=== PATIENT | female | born 1990 | race Caucasian/White ===

== ENCOUNTER → 2017-12-18 12:56 | Outpatient (CLI) | payer OTHER, SELFPAY | DX: K12.0 Recurrent oral aphthae (principal) | CPT/HCPCS: 87070 ==

== ENCOUNTER → 2018-03-30 09:57 | Outpatient (CLI) | payer OTHER, SELFPAY ==
[2018-03-30 11:17] LABS: Appearance Urine UA SL CLOUDY; Bilirubin Urine UA NEGATIVE (NEGATIVE); Color Urine UA YELLOW; Glucose Urine UA NEGATIVE (Normal); Ketones Urine UA NEGATIVE (NEGATIVE); Leukocyte Esterase Urine UA 3+ (NEGATIVE); Nitrite Urine UA Negative (Negative); Occult Blood Urine UA TRACE-LYSED (Negative); Protein Urine UA NEGATIVE (Negative); Specific Gravity Urine UA 1.015 (1.000-1.035); Urobilinogen Urine UA 0.2 E.U./dL (0.2); pH Urine UA 6.5 (4.5-8.0)
[2018-03-30 11:24] LABS: RBC Urine 0-1/HPF (0-5/HPF)
[2018-03-30 11:25] LABS: Bacteria Urine Many (>30); Culture Indicated Urine Cult Not Indicated; Squamous Epithelial Cell Urine 10-30 /HPF; WBC Urine 1-5/HPF (0-5/HPF)
== END ==
PROVIDERS: PCP Internal Medicine; Visit Provider Internal Medicine
DX: M54.5 Low back pain (principal); R82.71 Bacteriuria
CPT/HCPCS: 81001; 87086

== ENCOUNTER 2018-06-05 10:30 | Outpatient (RCR) | payer OTHER, SELFPAY ==
--- NOTE | 2018-05-18 16:04 | PT.OIE ---
Current Diagnoses Dorsalgia, unspecified (05/18/18) Past Medical History (Last Updated 03/04/18 @ 08:10 by Rosenda Cheatham) Ankle pain (Chronic ~2017) Scoliosis (Chronic ~2003) Chicken pox (Resolved ~1995) Past Surgical History (Last Updated 03/04/18 @ 08:10 by Rosenda Cheatham) Anesthesia (Resolved) History of rhinoplasty (Resolved ~2013) History of spinal fusion (Resolved ~2004) History of tonsillectomy and adenoidectomy (Resolved) Provider Visit Care Team Role Provider Type COLE Oscar Attending Provider Advanced Poultry And Fish Butcher Primary Care Provider Specialty: [facility] Practice Address: [address] [place] [address], [facility] Email: [email or web address] Physical Therapy Initial Evaluation PT-OP-A Visit Information Start: 05/18/18 08:27 Freq: Status: Active Protocol: Document 05/18/18 09:01 LRN (Rec: 05/18/18 09:47 LRN [id number]) Out-Patient Physical Therapy Visit Information Visit Information Visit Type Initial Evaluation Visit Note 24 visits Visit Start Time 09:01 Visit Stop Time 09:46 Total Visit Minutes 45 Visit Number 1 Number of SOFT METALS HAND ENGRAVER Visits 0 Evaluation Information Evaluation Date 05/18/18 PT-OP-B Current Condition Start: 05/18/18 08:27 Freq: Status: Active Protocol: Document 05/18/18 09:01 LRN (Rec: 05/18/18 09:47 LRN [id number]) Current Condition History of Current Condition Onset Date End february Current Complaints Pain is in the low back ( middle to R side)that wraps around the right hip. History of Current Condition Pt reports sudden onset of back pain. Woke with pain. Thinks sitting X-legged may have started the problem. thinks its from sitting wrong . She started sitting properly and her back pain improved, but did not go away. No radiating pain into the R leg. 80% of the LBP is on the R side. Pain is intermittent . Typically is very active, so now she is sore after exercise and after sitting ( used to be sharp). Her pain now hasn't prevented her from activities. The pt is R Handed. Prior Treatments and Tests Spinal fusion at age 14 for scoliosis. Developmental History Developmental History Pt exercises 3-4 times per week. Goes on walks, runs on TM 2x/week for 30' and does light weight gym exercises. Treatment Goals Patient/Caregiver Goals Pt's goal is to not have any pain in the low back. Prior Functional Status Baseline Function- ADL's Independent Baseline Function- Mobility Independent Baseline Function- Other Nothing restricted. Sore in back once in awhile, doesn't restrict activities. Current Functional Impairments (Reported) Functional Limitations- ADL's Independent Functional Limitations- Mobility/Gait Independent Functional Limitations- Recreation/ Limited slightly due to Hobbies soreness post exercise. 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 Lives in [place]. , no children. PT-OP-C Subjective Start: 05/18/18 08:27 Freq: Status: Active Protocol: Document 05/18/18 09:01 LRN (Rec: 05/18/18 09:47 LRN [id number]) OP-PT Subjective Patient Comments Patient Comments Has plateaued in improvement, therefore trying physical therapy for resolution of pain . Patient Questionnaires Foot & Ankle Ability Measure- ADL and Sports FAAM-ADL Impairment 100% Impaired (Score 0) Oswestry Low Back Index Oswestry Score 6 Oswestry Impairment 1 to 19% Impaired (Score 1-19) OP-PT Pain Assessment Pain Assessment Grid Paper Pain Assessment Grid Completed Yes Location Low back Pain Location Details At level of lower lumbar and upper gluteals Scale Used Numeric (1 - 10) Description Aching Description- Other Pain generally 1-2/10, at worst is 4/10 on the right. 1 -2/10 on the left. Frequency Intermittent Radiating Location None Pain Aggravating Factors Exercise Sitting Patient Stated Pain Goal Painfree. PT-OP-F Manual Assessment Start: 05/18/18 08:27 Freq: Status: Active Protocol: Document 05/18/18 09:01 LRN (Rec: 05/18/18 11:17 LRN [id number]) Manual Assessments Soft Tissue Assessment Soft Tissue Mobility Assessment Increased tone in R lumbar paraspinals and posterior hip muscles. Joint Mobility Assessment Joint Mobility Assessment L5 & Sacrum in R rotation. Sacrum in extension with spinal rods present. Spinal rods for scoliosis correction in place. PT-OP-J Posture/Palpation/Skin Start: 05/18/18 08:27 Freq: Status: Active Protocol: Document 05/18/18 09:01 LRN (Rec: 05/18/18 11:17 LRN [id number]) Posture Evaluation Position Standing Evaluation View All positions Head/C-Spine Posture Forward Head T-Spine Posture Flattened Pelvis Posture (R) Rotated Anterior (R) Iliac Crest Superior Weight Distribution Balanced Foot Arch (L) Medium Arch (R) Medium Arch Palpation Assessment Location Lumbar spine Palpation Location ~L5 spinous process and Transverse process with PA pressure Palpation Findings Tenderness PT-OP-K Range of Motion Start: 05/18/18 08:27 Freq: Status: Active Protocol: Document 05/18/18 09:01 LRN (Rec: 05/18/18 11:17 LRN [id number]) Hip Goniometric Range of Motion Hip Measured in Degrees Right Passive Testing Position Supine Straight Leg Raise 68 Internal Rotation 50 External Rotation 75 Left Passive Testing Position Supine Straight Leg Raise 60 Internal Rotation 45 External Rotation 70 Hip ROM Limitations Comments Hip AD: 25 deg's left, 25 deg' s right. PT-OP-L Special Tests Start: 05/18/18 08:27 Freq: Status: Active Protocol: Document 05/18/18 09:01 LRN (Rec: 05/18/18 15:28 LRN [id number]) Special Tests Lumbar Spine Special Tests Straight Leg Raise Test Results 68 deg's right, 60 deg's left. Hip Special Tests Lateral Compression Test Test Results Negative Comments Right side testing for SIJ involvement Distraction Test Test Results Negative Comments Right side testing for SIJ involvement DAIANA Test Results Negative Comments Right side testing for SIJ involvement PT-OP-M Strength Start: 05/18/18 08:27 Freq: Status: Active Protocol: Document 05/18/18 09:01 LRN (Rec: 05/18/18 15:28 LRN [id number]) Hip Strength Hip Manual Muscle Testing Right Reason Not Measured WFL Comments Bilaterally: WNL Knee Strength Knee Manual Muscle Testing Right Reason Not Measured WFL Comments Bilaterally: WNL PT-OP-Q Treatments Start: 05/18/18 08:27 Freq: Status: Active Protocol: Document 05/18/18 09:01 LRN (Rec: 05/18/18 15:23 LRN [id number]) Therapeutic Exercises Prone Exercises Lumbar ext Prone Exercise Name RONNI Side bilateral Reps/Minutes 10x Manual Therapy Treatment Joint Mobilizations Lumbar Joint L5 Direction PA Grade II Body Position Prone Reps/Duration 2' Manual Techniques Sacrum Type MET to correct R rotated and extended Sacrum Body Position Prone Reps/Duration 4' Lumbar Type MET to correct a R rotated L5 Body Position Prone Reps/Duration 2' Self-Care/Home Management Treatment Education Patient Education Body Mechanics Home Exercise Program Pain Management Other Education I/S pt in RONNI ex for HEP and use of ice for pain management . Briefly discussed posturing while at her workplace. PT-OP-T Assessment and Plan Start: 05/18/18 08:27 Freq: Status: Active Protocol: Document 05/18/18 09:01 LRN (Rec: 05/18/18 09:47 LRN [id number]) Physical Therapy Assessment Rehab Potential Rehabilitation Potential Excellent Evaluation Complexity Number of Personal Factors/Comorbidities 1-2 Number of Body Systems Impaired 3 Clinical Presentation at Evaluation Stable Impairments Impairments Activity Tolerance Pain ROM Soft Tissue Mobility Other Concerns Age Related Concerns Effect on work and family Barriers to Rehabilitation Spinal fusion with spinal rods to treat scoliosis. Goals Two Impairment Low back pain Document Specialist Goal (LTG) Decrease pain to 0/10 at rest and no greater than 1/10 after exercise. LTG Duration 07/06/18 One Impairment Lacks self care and HEP. Skilled Nursing Goal (LTG) Pt will be independent with a self care/HEP to manage her pain. LTG Duration 07/06/18 Assessment Summary Assessment Pt presents with probable lumbar pain associated to prolonged cross legged positioning, resulting in lower lumbar spine and sacrum in R rotation. She demonstrates 60 deg's SLR and hip tightness on the left vs right. I will monitor the pt for possible disc symptoms. She was negative in 3 of 5 tests for SIJ involvement; therefore her low back pain is most likely from poor posturing and lumbar strain. The pt's pain has been resolving and she is expected to progress well with therapy but will plan on average of 6 weeks of rehabilitation. The pt will benefit from skilled physical therapy for education on self care, progression of a HEP and treatment for low back pain. Physical Therapy Plan Frequency and Duration Frequency of Treatment 2x/Week Plan of Care Start Date 05/18/18 Plan of Care End Date 07/03/18 Therapeutic Interventions Therapeutic Interventions Home Exercise Program Manual Therapy Neuromuscular Re-education Patient/Caregiver Education Self-Care/Home Management Soft Tissue Mobilization Taping Therapeutic Activities Therapeutic Exercises Modalities Cold Pack/Ice Massage Next Visit Focus/Plan Next Visit Plan Ex bike for warm up, MET for correction of low back/sacral rotation if needed, K-tape lower L/S for muscle relaxation/inflammation. Start STM low back & hips, HEP of hip stretches (Hamstring/ neural, IR left, AD right). Check Thigh Thrust test. End ice.
--- NOTE | 2018-05-18 16:05 | PT.OPPOC ---
Current Diagnoses Dorsalgia, unspecified (05/18/18) Provider Visit Care Team Role Provider Type COLE Oscar Attending Provider Advanced Ribbon Lapper Tender Primary Care Provider Specialty: Family Practice Address: [address] [place] [address], [id number] Email: [email or web address] Plan Of Care PT-OP-T Assessment and Plan Start: 05/18/18 08:27 Freq: Status: Active Protocol: Document 05/18/18 09:01 LRN (Rec: 05/18/18 09:47 LRN [id number]) Physical Therapy Assessment Rehab Potential Rehabilitation Potential Excellent Evaluation Complexity Number of Personal Factors/Comorbidities 1-2 Number of Body Systems Impaired 3 Clinical Presentation at Evaluation Stable Impairments Impairments Activity Tolerance Pain ROM Soft Tissue Mobility Other Concerns Age Related Concerns Effect on work and family Barriers to Rehabilitation Spinal fusion with spinal rods to treat scoliosis. Goals Two Impairment Low back pain Care Home Goal (LTG) Decrease pain to 0/10 at rest and no greater than 1/10 after exercise. LTG Duration 07/06/18 One Impairment Lacks self care and HEP. Care Home Goal (LTG) Pt will be independent with a self care/HEP to manage her pain. LTG Duration 07/06/18 Assessment Summary Assessment Pt presents with probable lumbar pain associated to prolonged cross legged positioning, resulting in lower lumbar spine and sacrum in R rotation. She demonstrates 60 deg's SLR and hip tightness on the left vs right. I will monitor the pt for possible disc symptoms. She was negative in 3 of 5 tests for SIJ involvement; therefore her low back pain is most likely from poor posturing and lumbar strain. The pt's pain has been resolving and she is expected to progress well with therapy but will plan on average of 6 weeks of rehabilitation. The pt will benefit from skilled physical therapy for education on self care, progression of a HEP and treatment for low back pain. Physical Therapy Plan Frequency and Duration Frequency of Treatment 2x/Week Plan of Care Start Date 05/18/18 Plan of Care End Date 07/03/18 Therapeutic Interventions Therapeutic Interventions Home Exercise Program Manual Therapy Neuromuscular Re-education Patient/Caregiver Education Self-Care/Home Management Soft Tissue Mobilization Taping Therapeutic Activities Therapeutic Exercises Modalities Cold Pack/Ice Massage Next Visit Focus/Plan Next Visit Plan Ex bike for warm up, MET for correction of low back/sacral rotation if needed, K-tape lower L/S for muscle relaxation/inflammation. Start STM low back & hips, HEP of hip stretches (Hamstring/ neural, IR left, AD right). Check Thigh Thrust test. End ice. Plan of Care Dates Plan of Care Start Date 05/18/18 Plan of Care End Date 07/03/18 Please Sign and Return: I have reviewed this Plan of Care and certify that the skilled therapy services above are required to meet the patient?s needs. Physician Signature Date Printed Name and Credentials Clinical Instructor Signature Printed Name and Credentials
--- NOTE | 2018-05-25 16:34 | PT.OTN ---
Current Diagnoses Dorsalgia, unspecified (05/25/18) Physical Therapy Treatment Note PT-OP-A Visit Information Start: 05/18/18 08:27 Freq: Status: Active Protocol: Document 05/25/18 15:19 SAK (Rec: 05/25/18 16:34 SAK [id number]) Out-Patient Physical Therapy Visit Information Visit Information Visit Type Initial Evaluation Visit Start Time 15:19 Visit Stop Time 16:07 Total Visit Minutes 48 Visit Number 09/27 Evaluation Information Evaluation Date 05/18/18 PT-OP-B Current Condition Start: 05/18/18 08:27 Freq: Status: Active Protocol: Document 05/18/18 09:01 LRN (Rec: 05/18/18 09:47 LRN [id number]) Current Condition History of Current Condition Onset Date End of February Current Complaints Pain is in the low back ( middle to R side)that wraps around the right hip. History of Current Condition Pt reports sudden onset of back pain. Woke with pain. Thinks sitting X-legged may have started the problem. thinks its from sitting wrong . She started sitting properly and her back pain improved, but did not go away. No radiating pain into the R leg. 80% of the LBP is on the R side. Pain is intermittent . Typically is very active, so now she is sore after exercise and after sitting ( used to be sharp). Her pain now hasn't prevented her from activities. The pt is R Handed. Prior Treatments and Tests Spinal fusion at age 14 for scoliosis. Developmental History Developmental History Pt exercises 3-4 times per week. Goes on walks, runs on TM 2x/week for 30' and does light weight gym exercises. Treatment Goals Patient/Caregiver Goals Pt's goal is to not have any pain in the low back. Prior Functional Status Baseline Function- ADL's Independent Baseline Function- Mobility Independent Baseline Function- Other Nothing restricted. Sore in back once in awhile, doesn't restrict activities. Current Functional Impairments (Reported) Functional Limitations- ADL's Independent Functional Limitations- Mobility/Gait Independent Functional Limitations- Recreation/ Limited slightly due to Hobbies soreness post exercise. 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 Lives in [place]. , no children. PT-OP-C Subjective Start: 05/18/18 08:27 Freq: Status: Active Protocol: Document 05/25/18 15:19 SAK (Rec: 05/25/18 16:32 SAK [id number]) OP-PT Subjective Patient Comments Patient Comments maybe a little better after first session. PT-OP-F Manual Assessment Start: 05/18/18 08:27 Freq: Status: Active Protocol: Document 05/18/18 09:01 LRN (Rec: 05/18/18 11:17 LRN [id number]) Manual Assessments Soft Tissue Assessment Soft Tissue Mobility Assessment Increased tone in R lumbar paraspinals and posterior hip muscles. Joint Mobility Assessment Joint Mobility Assessment L5 & Sacrum in R rotation. Sacrum in extension with spinal rods present. Spinal rods for scoliosis correction in place. PT-OP-J Posture/Palpation/Skin Start: 05/18/18 08:27 Freq: Status: Active Protocol: Document 05/18/18 09:01 LRN (Rec: 05/18/18 11:17 LRN [id number]) Posture Evaluation Position Standing Evaluation View All positions Head/C-Spine Posture Forward Head T-Spine Posture Flattened Pelvis Posture (R) Rotated Anterior (R) Iliac Crest Superior Weight Distribution Balanced Foot Arch (L) Medium Arch (R) Medium Arch Palpation Assessment Location Lumbar spine Palpation Location ~L5 spinous process and Transverse process with PA pressure Palpation Findings Tenderness PT-OP-K Range of Motion Start: 05/18/18 08:27 Freq: Status: Active Protocol: Document 05/18/18 09:01 LRN (Rec: 05/18/18 11:17 LRN [id number]) Hip Goniometric Range of Motion Hip Measured in Degrees Right Passive Testing Position Supine Straight Leg Raise 68 Internal Rotation 50 External Rotation 75 Left Passive Testing Position Supine Straight Leg Raise 60 Internal Rotation 45 External Rotation 70 Hip ROM Limitations Comments Hip AD: 25 deg's left, 25 deg' s right. PT-OP-L Special Tests Start: 05/18/18 08:27 Freq: Status: Active Protocol: Document 05/18/18 09:01 LRN (Rec: 05/18/18 15:28 LRN [id number]) Special Tests Lumbar Spine Special Tests Straight Leg Raise Test Results 68 deg's right, 60 deg's left. Hip Special Tests Lateral Compression Test Test Results Negative Comments Right side testing for SIJ involvement Distraction Test Test Results Negative Comments Right side testing for SIJ involvement DAIANA Test Results Negative Comments Right side testing for SIJ involvement PT-OP-M Strength Start: 05/18/18 08:27 Freq: Status: Active Protocol: Document 05/18/18 09:01 LRN (Rec: 05/18/18 15:28 LRN [id number]) Hip Strength Hip Manual Muscle Testing Right Reason Not Measured WFL Comments Bilaterally: WNL Knee Strength Knee Manual Muscle Testing Right Reason Not Measured WFL Comments Bilaterally: WNL PT-OP-Q Treatments Start: 05/18/18 08:27 Freq: Status: Active Protocol: Document 05/25/18 15:19 SAK (Rec: 05/25/18 16:32 SAK [id number]) Cardio Equipment Recumbent Stepper (Sci-Fit) Duration (Minutes) 5 Resistance 2.0 Other emphasis on core activation, neutral LE's Therapeutic Exercises Supine Exercises DKTC Reps/Minutes 2x bicycle Reps/Minutes 20x Comments head down, no twisting Prone Exercises plank Reps/Minutes 10 sec x 2 Sitting Exercises figure 4, piriformis Reps/Minutes 2x Standing Exercises hip flex stretch Reps/Minutes 2x HS stretch Reps/Minutes 2x Comments neutral and with IR HC stretch Equipment Used JENNIFER Reps/Minutes 2x Self-Care/Home Management Treatment Education Patient Education Body Mechanics Home Exercise Program Pain Management Posture Other Education written HEP for core stab, LE flexibility. Issued L1 and L2 TB Patient instructed to have a co-worker take a picture of her sitting at work station and have videotape her jogging on treadmill. Work stretches into her day. PT-OP-R Modalities Start: 05/18/18 08:27 Freq: Status: Active Protocol: Document 05/25/18 15:19 SAK (Rec: 05/25/18 16:32 SAK [id number]) Hot Pack/Cold Pack Treatment Cold Pack Location lumbar spine Patient Position Hooklying Treatment Duration (minutes) 10 PT-OP-T Assessment and Plan Start: 05/18/18 08:27 Freq: Status: Active Protocol: Document 05/25/18 15:19 SAK (Rec: 05/25/18 16:32 SAK [id number]) Physical Therapy Assessment Goals Two Impairment Low back pain Slot Editor Goal (LTG) Decrease pain to 0/10 at rest and no greater than 1/10 after exercise. LTG Duration 07/06/18 One Impairment Lacks self care and HEP. Mcc Goal (LTG) Pt will be independent with a self care/HEP to manage her pain. LTG Duration 07/06/18 Assessment Summary Assessment Patient demonstrated good understanding of probable contributing factors to her pain including asymmetrical posturing and movement, poor work ergonomics, ER right LE greater than left in stance and with gait, core muscle weakness. Demonstrated good understanding of exercises performed today and added to HEP without c/o increased pain . Physical Therapy Plan Frequency and Duration Frequency of Treatment 2x/Week Plan of Care Start Date 05/18/18 Plan of Care End Date 07/03/18 Therapeutic Interventions Therapeutic Interventions Home Exercise Program Manual Therapy Neuromuscular Re-education Patient/Caregiver Education Self-Care/Home Management Soft Tissue Mobilization Taping Therapeutic Activities Therapeutic Exercises Modalities Cold Pack/Ice Massage Next Visit Focus/Plan Next Visit Plan Review HEP, modify as indicated. Evaluate response to last session. Start STM low back and hips. Check Thigh hrust test. K-tape lower l/s for muscle relaxation/inflammation.
--- NOTE | 2018-05-29 15:56 | PT.OTN ---
Current Diagnoses Dorsalgia, unspecified (05/29/18) Physical Therapy Treatment Note PT-OP-A Visit Information Start: 05/18/18 08:27 Freq: Status: Active Protocol: Document 05/25/18 15:19 SAK (Rec: 05/25/18 16:34 SAK [id number]) Out-Patient Physical Therapy Visit Information Visit Information Visit Type Initial Evaluation Visit Start Time 15:19 Visit Stop Time 16:07 Total Visit Minutes 48 Visit Number 09/27 Evaluation Information Evaluation Date 05/18/18 PT-OP-B Current Condition Start: 05/18/18 08:27 Freq: Status: Active Protocol: Document 05/18/18 09:01 LRN (Rec: 05/18/18 09:47 LRN [id number]) Current Condition History of Current Condition Onset Date End of February Current Complaints Pain is in the low back ( middle to R side)that wraps around the right hip. History of Current Condition Pt reports sudden onset of back pain. Woke with pain. Thinks sitting X-legged may have started the problem. thinks its from sitting wrong . She started sitting properly and her back pain improved, but did not go away. No radiating pain into the R leg. 80% of the LBP is on the R side. Pain is intermittent . Typically is very active, so now she is sore after exercise and after sitting ( used to be sharp). Her pain now hasn't prevented her from activities. The pt is R Handed. Prior Treatments and Tests Spinal fusion at age 14 for scoliosis. Developmental History Developmental History Pt exercises 3-4 times per week. Goes on walks, runs on TM 2x/week for 30' and does light weight gym exercises. Treatment Goals Patient/Caregiver Goals Pt's goal is to not have any pain in the low back. Prior Functional Status Baseline Function- ADL's Independent Baseline Function- Mobility Independent Baseline Function- Other Nothing restricted. Sore in back once in awhile, doesn't restrict activities. Current Functional Impairments (Reported) Functional Limitations- ADL's Independent Functional Limitations- Mobility/Gait Independent Functional Limitations- Recreation/ Limited slightly due to Hobbies soreness post exercise. 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 Lives in [place]. , no children. PT-OP-C Subjective Start: 05/18/18 08:27 Freq: Status: Active Protocol: Document 05/29/18 15:40 SA (Rec: 05/29/18 15:56 SA [email or web address]) OP-PT Subjective Patient Comments Patient Comments Feeling about the same, doing piroformis stretching at work and that seems to help. OP-PT Pain Assessment Location Low back Pain Location Details central low back and into R sacral Intensity 2 Scale Used Numeric (1 - 10) Radiating Location no Pain Aggravating Factors Sitting PT-OP-F Manual Assessment Start: 05/18/18 08:27 Freq: Status: Active Protocol: Document 05/18/18 09:01 LRN (Rec: 05/18/18 11:17 LRN [id number]) Manual Assessments Soft Tissue Assessment Soft Tissue Mobility Assessment Increased tone in R lumbar paraspinals and posterior hip muscles. Joint Mobility Assessment Joint Mobility Assessment L5 & Sacrum in R rotation. Sacrum in extension with spinal rods present. Spinal rods for scoliosis correction in place. PT-OP-J Posture/Palpation/Skin Start: 05/18/18 08:27 Freq: Status: Active Protocol: Document 05/18/18 09:01 LRN (Rec: 05/18/18 11:17 LRN [id number]) Posture Evaluation Position Standing Evaluation View All positions Head/C-Spine Posture Forward Head T-Spine Posture Flattened Pelvis Posture (R) Rotated Anterior (R) Iliac Crest Superior Weight Distribution Balanced Foot Arch (L) Medium Arch (R) Medium Arch Palpation Assessment Location Lumbar spine Palpation Location ~L5 spinous process and Transverse process with PA pressure Palpation Findings Tenderness PT-OP-K Range of Motion Start: 05/18/18 08:27 Freq: Status: Active Protocol: Document 05/18/18 09:01 LRN (Rec: 05/18/18 11:17 LRN [id number]) Hip Goniometric Range of Motion Hip Measured in Degrees Right Passive Testing Position Supine Straight Leg Raise 68 Internal Rotation 50 External Rotation 75 Left Passive Testing Position Supine Straight Leg Raise 60 Internal Rotation 45 External Rotation 70 Hip ROM Limitations Comments Hip AD: 25 deg's left, 25 deg' s right. PT-OP-L Special Tests Start: 05/18/18 08:27 Freq: Status: Active Protocol: Document 05/18/18 09:01 LRN (Rec: 05/18/18 15:28 LRN [id number]) Special Tests Lumbar Spine Special Tests Straight Leg Raise Test Results 68 deg's right, 60 deg's left. Hip Special Tests Lateral Compression Test Test Results Negative Comments Right side testing for SIJ involvement Distraction Test Test Results Negative Comments Right side testing for SIJ involvement DAIANA Test Results Negative Comments Right side testing for SIJ involvement PT-OP-M Strength Start: 05/18/18 08:27 Freq: Status: Active Protocol: Document 05/18/18 09:01 LRN (Rec: 05/18/18 15:28 LRN [id number]) Hip Strength Hip Manual Muscle Testing Right Reason Not Measured WFL Comments Bilaterally: WNL Knee Strength Knee Manual Muscle Testing Right Reason Not Measured WFL Comments Bilaterally: WNL PT-OP-Q Treatments Start: 05/18/18 08:27 Freq: Status: Active Protocol: Document 05/29/18 15:40 SA (Rec: 05/29/18 15:56 SA [email or web address]) Cardio Equipment Recumbent Stepper (Sci-Fit) Duration (Minutes) 6 Resistance 2.0 Other core activation focus Therapeutic Exercises Supine Exercises DKTC Reps/Minutes 2x 30 seconds bicycle Reps/Minutes 20x Comments head down, no twisting Prone Exercises plank Reps/Minutes 30 seconds x 2 Lumbar ext Prone Exercise Name RONNI Side bilateral Reps/Minutes 10x Sitting Exercises figure 4, piriformis Reps/Minutes 2x Standing Exercises hip flex stretch Reps/Minutes 2x HS stretch Reps/Minutes 2x Comments neutral and with IR HC stretch Equipment Used JENNIFER Reps/Minutes 2x Manual Therapy Treatment Soft Tissue Mobilization STM/MFR Body Location B lumbar paraspinals, R sacral region into glutes Mobilization Type Myofascial Release Rolling Strumming Intensity/Depth Moderate Comments Pt tolerated well, stating she felt better after treatment with improved ease of movement . PT-OP-R Modalities Start: 05/18/18 08:27 Freq: Status: Active Protocol: Document 05/29/18 15:40 SA (Rec: 05/29/18 15:56 SA [email or web address]) Hot Pack/Cold Pack Treatment Cold Pack Location lumbar spine Patient Position Prone Treatment Duration (minutes) 10 Comments [place] good at end of session. PT-OP-T Assessment and Plan Start: 05/18/18 08:27 Freq: Status: Active Protocol: Document 05/29/18 15:40 SA (Rec: 05/29/18 15:56 SA [email or web address]) Physical Therapy Assessment Rehab Potential Rehabilitation Potential Excellent Evaluation Complexity Number of Personal Factors/Comorbidities 1-2 Number of Body Systems Impaired 3 Clinical Presentation at Evaluation Stable Impairments Impairments Activity Tolerance Pain ROM Soft Tissue Mobility Other Concerns Age Related Concerns Effect on work and family Barriers to Rehabilitation Spinal fusion with spinal rods to treat scoliosis. Goals Two Impairment Low back pain Emergency Department Rn Goal (LTG) Decrease pain to 0/10 at rest and no greater than 1/10 after exercise. LTG Duration 07/06/18 One Impairment Lacks self care and HEP. Custodial Goal (LTG) Pt will be independent with a self care/HEP to manage her pain. LTG Duration 07/06/18 Assessment Summary Assessment Patient provided with handout for work station set up so she can modify her set up at work for decreased irritation. Pt to assess her response to STM/ stretching today. Physical Therapy Plan Next Visit Focus/Plan Next Note Type Treatment Note Next Visit Plan Continue with HEP and frequent position changes at work. STM if improvement noted. K-tape to lower l/s for muscle inflammation and relaxation.
--- NOTE | 2018-06-05 11:41 | PT.OTN ---
Current Diagnoses Dorsalgia, unspecified (06/05/18) Physical Therapy Treatment Note PT-OP-A Visit Information Start: 05/18/18 08:27 Freq: Status: Active Protocol: Document 06/05/18 11:31 SA (Rec: 06/05/18 11:41 SA [email or web address]) Out-Patient Physical Therapy Visit Information Visit Information Visit Type Treatment Note Visit Start Time 10:34 Visit Stop Time 11:19 Total Visit Minutes 44 Visit Number 11/25 PT-OP-B Current Condition Start: 05/18/18 08:27 Freq: Status: Active Protocol: Document 05/18/18 09:01 LRN (Rec: 05/18/18 09:47 LRN [id number]) Current Condition History of Current Condition Onset Date End of February Current Complaints Pain is in the low back ( middle to R side)that wraps around the right hip. History of Current Condition Pt reports sudden onset of back pain. Woke with pain. Thinks sitting X-legged may have started the problem. thinks its from sitting wrong . She started sitting properly and her back pain improved, but did not go away. No radiating pain into the R leg. 80% of the LBP is on the R side. Pain is intermittent . Typically is very active, so now she is sore after exercise and after sitting ( used to be sharp). Her pain now hasn't prevented her from activities. The pt is R Handed. Prior Treatments and Tests Spinal fusion at age 14 for scoliosis. Developmental History Developmental History Pt exercises 3-4 times per week. Goes on walks, runs on TM 2x/week for 30' and does light weight gym exercises. Treatment Goals Patient/Caregiver Goals Pt's goal is to not have any pain in the low back. Prior Functional Status Baseline Function- ADL's Independent Baseline Function- Mobility Independent Baseline Function- Other Nothing restricted. Sore in back once in awhile, doesn't restrict activities. Current Functional Impairments (Reported) Functional Limitations- ADL's Independent Functional Limitations- Mobility/Gait Independent Functional Limitations- Recreation/ Limited slightly due to Hobbies soreness post exercise. 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 Lives in [place]. , no children. PT-OP-C Subjective Start: 05/18/18 08:27 Freq: Status: Active Protocol: Document 06/05/18 11:31 SA (Rec: 06/05/18 11:41 SA [email or web address]) OP-PT Subjective Patient Comments Patient Comments Feeling better, doing HEP daily and went for a run and tolerated well with no pain. [facility] sore initially after massage last time but had lasting pain relief. Patient Reported Progress Improving PT-OP-F Manual Assessment Start: 05/18/18 08:27 Freq: Status: Active Protocol: Document 05/18/18 09:01 LRN (Rec: 05/18/18 11:17 LRN [id number]) Manual Assessments Soft Tissue Assessment Soft Tissue Mobility Assessment Increased tone in R lumbar paraspinals and posterior hip muscles. Joint Mobility Assessment Joint Mobility Assessment L5 & Sacrum in R rotation. Sacrum in extension with spinal rods present. Spinal rods for scoliosis correction in place. PT-OP-J Posture/Palpation/Skin Start: 05/18/18 08:27 Freq: Status: Active Protocol: Document 05/18/18 09:01 LRN (Rec: 05/18/18 11:17 LRN [id number]) Posture Evaluation Position Standing Evaluation View All positions Head/C-Spine Posture Forward Head T-Spine Posture Flattened Pelvis Posture (R) Rotated Anterior (R) Iliac Crest Superior Weight Distribution Balanced Foot Arch (L) Medium Arch (R) Medium Arch Palpation Assessment Location Lumbar spine Palpation Location ~L5 spinous process and Transverse process with PA pressure Palpation Findings Tenderness PT-OP-K Range of Motion Start: 05/18/18 08:27 Freq: Status: Active Protocol: Document 05/18/18 09:01 LRN (Rec: 05/18/18 11:17 LRN [id number]) Hip Goniometric Range of Motion Hip Measured in Degrees Right Passive Testing Position Supine Straight Leg Raise 68 Internal Rotation 50 External Rotation 75 Left Passive Testing Position Supine Straight Leg Raise 60 Internal Rotation 45 External Rotation 70 Hip ROM Limitations Comments Hip AD: 25 deg's left, 25 deg' s right. PT-OP-L Special Tests Start: 05/18/18 08:27 Freq: Status: Active Protocol: Document 05/18/18 09:01 LRN (Rec: 05/18/18 15:28 LRN [id number]) Special Tests Lumbar Spine Special Tests Straight Leg Raise Test Results 68 deg's right, 60 deg's left. Hip Special Tests Lateral Compression Test Test Results Negative Comments Right side testing for SIJ involvement Distraction Test Test Results Negative Comments Right side testing for SIJ involvement DAIANA Test Results Negative Comments Right side testing for SIJ involvement PT-OP-M Strength Start: 05/18/18 08:27 Freq: Status: Active Protocol: Document 05/18/18 09:01 LRN (Rec: 05/18/18 15:28 LRN [id number]) Hip Strength Hip Manual Muscle Testing Right Reason Not Measured WFL Comments Bilaterally: WNL Knee Strength Knee Manual Muscle Testing Right Reason Not Measured WFL Comments Bilaterally: WNL PT-OP-Q Treatments Start: 05/18/18 08:27 Freq: Status: Active Protocol: Document 06/05/18 11:31 SA (Rec: 06/05/18 11:41 SA [email or web address]) Cardio Equipment Recumbent Stepper (Sci-Fit) Duration (Minutes) 7 Resistance 2.0 Other core activation focus Therapeutic Exercises Supine Exercises Bent knee lateral roll outs Side bilateral Equipment Used PT ball Reps/Minutes 10x each side bridging with PT ball Equipment Used Red ball Reps/Minutes 10x Comments well tolerated DKTC Side bilateral Reps/Minutes 2x 30 seconds Comments and SKTC 2 x 30 Prone Exercises plank Reps/Minutes 30 seconds x 2 Sitting Exercises figure 4, piriformis Reps/Minutes 2x Standing Exercises hip flex stretch Reps/Minutes 2x HS stretch Reps/Minutes 2x Comments neutral and with IR HC stretch Equipment Used JENNIFER Reps/Minutes 2x PT-OP-R Modalities Start: 05/18/18 08:27 Freq: Status: Active Protocol: Document 05/29/18 15:40 SA (Rec: 05/29/18 15:56 SA [email or web address]) Hot Pack/Cold Pack Treatment Cold Pack Location lumbar spine Patient Position Prone Treatment Duration (minutes) 10 Comments [place] good at end of session. PT-OP-T Assessment and Plan Start: 05/18/18 08:27 Freq: Status: Active Protocol: Document 06/05/18 11:31 SA (Rec: 06/05/18 11:41 SA [email or web address]) Physical Therapy Assessment Rehab Potential Rehabilitation Potential Excellent Progress Towards Goals Progress Towards Goals Progressing Toward Goals Assessment Summary Assessment Pt taking stretching breaks at work and monitoring seated posture at work station. Doing HEP reg and was able to go on 2 mile run pain free. Physical Therapy Plan Frequency and Duration Frequency of Treatment 2x/Week Next Visit Focus/Plan Next Note Type Treatment Note Next Visit Plan Continue to progress core stabilization program and stretching. Pt plans to try a run again, follow up with tolerance of that.
--- NOTE | 2018-09-15 13:29 | PT.OPDS ---
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 History of Current Condition Pt reports sudden onset of back pain. Woke with pain. Thinks sitting X-legged may have started the problem. thinks its from sitting wrong . She started sitting properly and her back pain improved, but did not go away. No radiating pain into the R leg. 80% of the LBP is on the R side. Pain is intermittent . Typically is very active, so now she is sore after exercise and after sitting ( used to be sharp). Her pain now hasn't prevented her from activities. The pt is R Handed. Prior Treatments and Tests Spinal fusion at age 14 for scoliosis. Developmental History Developmental History Pt exercises 3-4 times per week. Goes on walks, runs on TM 2x/week for 30' and does light weight gym exercises. Treatment Goals Patient/Caregiver Goals Pt's goal is to not have any pain in the low back. Prior Functional Status Baseline Function- ADL's Independent Baseline Function- Mobility Independent Baseline Function- Other Nothing restricted. Sore in back once in awhile, doesn't restrict activities. Current Functional Impairments (Reported) Functional Limitations- ADL's Independent Functional Limitations- Mobility/Gait Independent Functional Limitations- Recreation/ Limited slightly due to Hobbies soreness post exercise. 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 Lives in [place]. , no children. PT-OP-T Assessment and Plan Start: 05/18/18 08:27 Freq: Status: Active Protocol: Document 09/15/18 13:21 LRN (Rec: 09/15/18 13:29 LRN [id number]) Physical Therapy Assessment Goals Two Impairment Low back pain [facility] Goal (LTG) Decrease pain to 0/10 at rest and no greater than 1/10 after exercise. LTG Duration 07/06/18 (Pt unavailable for final assessment) One Impairment Lacks self care and HEP. 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 LTG Duration 07/06/18 (Goal Partially Met, pt did not complete rehab program) Assessment Summary Assessment Pt is being discharged from therapy due to failure to attend. She was seen for 3 treatment sessions with her last attended session on . On her last attended session it appeared she was taking stretching breaks at work and monitoring seated posture at work station. She was doing HEP reg and was able to go on 2 mile run pain free . Pt was unavailable for final assessment. Physical Therapy Plan Discharge Physical Therapy Discharge Reasons No Longer Attending PT Discharge Comments Thank you for your referral.
== END 2018-09-23 12:18 ==
LOC: PHYS 10:30
PROVIDERS: PCP Internal Medicine; Visit Provider Internal Medicine
DX: M54.9 Dorsalgia, unspecified (principal)
CPT/HCPCS: 97010; 97110; 97140; 97161; 97530; 97535

== ENCOUNTER → 2019-08-30 14:50 | Outpatient (CLI) | payer OTHER, SELFPAY ==
--- NOTE | 2019-08-30 | DI.RAD.S_ITS ---
PROCEDURE: XR THORACIC SPINE 3V INDICATIONS: right side thoracic spine pain history of ixmena placement for TECHNIQUE: 3 views of the thoracic spine were acquired. COMPARISON: None. FINDINGS: Bones: No fractures or dislocations. No suspicious bony lesions. 12 pairs of ribs are noted, and appear intact where visualized. Prior extensive spine fusion procedure has been performed, with from T6-L2 with vertical fixation rods and transverse pedicle screws at multiple levels. There is no evidence of device loosening or disruption. Soft tissues: No paravertebral stripe thickening. IMPRESSION: Source of new pain related to prior spine fusion devices crossing the middle and lower thirds of the thoracic spine and extending into the upper lumbar spine is not found. No device loosening or disruption is suspected. Dictated by: Roosevelt Hdez M.D. on 08/30/2019 at 15:34 Approved by: Roosevelt Hdez M.D. on 08/30/2019 at 15:37
== END ==
PROVIDERS: PCP Internal Medicine; Visit Provider Internal Medicine
DX: M54.6 Pain in thoracic spine (principal)
CPT/HCPCS: 72072